=== PATIENT | female | born 1990 | race Caucasian/White ===

== ENCOUNTER → 2019-05-03 18:53 | Outpatient (CLI) | payer OTHER, MEDICAID, SELFPAY ==
--- NOTE | 2019-05-03 | DI.RAD.S_ITS ---
PROCEDURE: XR THORACIC SPINE 2V INDICATIONS: blunt trauma TECHNIQUE: 3 views of the thoracic spine were acquired. COMPARISON: None. FINDINGS: Bones: No fractures or dislocations. No suspicious bony lesions. There is mild degenerative disc disease at T6-T7, T7-T8, T8-T9, T9-T10, and T10-T11. 12 pairs of ribs are noted, and appear intact where visualized. Soft tissues: No paravertebral stripe thickening. IMPRESSION: No fractures. Degenerative disc disease. Dictated by: Justyn Vazquez M.D. on 05/05/2019 at 11:32 Approved by: Justyn Vazquez M.D. on 05/05/2019 at 11:33
--- NOTE | 2019-05-03 | DI.RAD.S_ITS ---
PROCEDURE: XR CERVICAL SPINE 2V OR 3V INDICATIONS: BLUNT TRAUMA TECHNIQUE: 3 view(s) of the cervical spine were acquired. COMPARISON: None. FINDINGS: Bones: No fractures or dislocations to the C7 level. The lateral masses of C1 appear intact on the odontoid view. No suspicious bony lesions. Straightening of the normal lordotic curvature. Multilevel degenerative endplate sclerosis and spurring. Diffuse facet arthropathy. Minimal narrowing of the C4-C5, C5-C6 and C6-C7 disc spaces. Soft tissues: No prevertebral soft tissue swelling. IMPRESSION: Straightening of the normal lordotic curvature. Multilevel cervical spondylosis and facet disease as above No fracture. Dictated by: Fuad Dowling M.D. on 05/04/2019 at 8:54 Approved by: Fuad Dowling M.D. on 05/04/2019 at 8:55
== END ==
PROVIDERS: PCP Family Medicine; Visit Provider Family Medicine
DX: S19.80XA Other specified injuries of unspecified part of neck, initial encounter (principal); M47.812 Spondylosis without myelopathy or radiculopathy, cervical region; M51.34 Other intervertebral disc degeneration, thoracic region
CPT/HCPCS: 72040; 72070

== ENCOUNTER 2019-08-12 14:15 | Emergency (ER) | payer OTHER, MEDICAID, SELFPAY ==
[2019-08-12 14:25] VITALS: BP 134/100; PULSE 70; RESP 15; TEMP 36.6; O2SAT 99; BMI 31.9
[2019-08-12 14:51] LABS: Add Manual Diff / Slide Review NO; Basophils Absolute Auto 0 /uL (0-100); Basophils Percent Auto 0.5 % (0-2); Eosinophils Absolute Auto 500 /uL (0-450); Eosinophils Percent Auto 6.9 % (2-4); Hematocrit 39.9 % (36-46); Hemoglobin 13.6 g/dL (12.0-16.0); Lymphocytes Absolute Auto 2400 /uL (1100-4500); Lymphocytes Percent Auto 33.4 % (25-40); Mean Corpuscular Hemoglobin 29.6 PG (26-34); Mean Corpuscular Volume 87.1 fL (80-100); Monocytes Absolute Auto 900 /uL (0-900); Neutrophils Absolute Auto 3300 /uL (1500-7000); Neutrophils Percent Auto 46.2 % (50-75); Platelet Count 270 X10^3/uL (150-400); Red Blood Cell Count 4.58 X10^6/uL (4.0-5.2); Red Cell Distribution Width 13.8 % (11.6-14.8); White Blood Cell Count 7.2 X10^3/uL (4.5-11.0)
[2019-08-12 14:52] LABS: Prothrombin Time 11.6 SECONDS (10.1-12.7)
[2019-08-12 14:55] LABS: PTT Partial Thromboplastin Tim 35 SECONDS (26.4-36.2)
[2019-08-12 14:57] LABS: Alanine Aminotransferase 27 IU/L (<35); Albumin 4.5 g/dL (3.5-5.0); Albumin Globulin Ratio 1.4 (1.0-2.8); Alkaline Phosphatase 75 U/L (38-126); Aspartate Aminotransferase 44 IU/L (14-36); Bilirubin Total 0.3 mg/dL (0.2-1.3); Blood Urea Nitrogen 6 mg/dL (7-17); Calcium 9.3 mg/dL (8.4-10.2); Carbon Dioxide 29 mmol/L (22-32); Chloride 101 mmol/L (98-107); Estimated Glomerular Filt Rate > 60.0 mL/min (>60); Globulin 3.3 g/dL (1.7-4.1); Glucose 118 mg/dL (70-100); HEMOLYSIS < 15 (0-50); Lipase 39 U/L (23-300); Sodium 138 mmol/L (137-145); Total Protein 7.8 g/dL (6.3-8.2)
[2019-08-12 15:30] VITALS: BP 113/80; PULSE 65; O2SAT 96
--- NOTE | 2019-08-12 15:37 | DI.CT.S_ITS ---
PROCEDURE: CT ABDOMEN PELVIS W CON INDICATIONS: RLQ, rebound tenderness, fever TECHNIQUE: After the administration of intravenous contrast, 5 mm thick sections acquired from the diaphragm to the symphysis. 5 mm coronal and sagittal reformats were acquired. For radiation dose reduction, the following was used: automated exposure control, adjustment of mA and/or kV according to patient size. COMPARISON: [facility], CR, XR CHEST 2V, 08/12/2019, 15:48. FINDINGS: Image quality: Excellent. ABDOMEN: Lung bases: Mild dependent atelectasis at right lung base. Heart size is normal. Solid organs: Liver is normal in size and enhancement. Gallbladder is normal. Biliary system is non dilated. Pancreas enhances normally. Spleen is normal in size and enhancement. No adrenal nodules. Kidneys demonstrate normal size and enhancement, without hydronephrosis. Peritoneum and bowel: Appendix is normal. Bowel loops demonstrate normal wall thickness and caliber. No free fluid or air. Nodes and vessels: No retroperitoneal or mesenteric adenopathy by size criteria. Aorta and inferior vena cava are normal in size. Miscellaneous: No ventral hernias. PELVIS: Genitourinary: Bladder wall thickness is normal. Uterus is normal. There is a 1.1 cm cyst in the right ovary, probably a physiological ovarian follicle. No free fluid in the cul-de-sac or adnexa. Miscellaneous: No inguinal hernias or adenopathy. Bones: No suspicious bony lesions. No vertebral body compression fractures. There is degenerative disc and facet disease in lumbar spine. IMPRESSION: 1. Normal appendix. 2. A 1.1 cm cyst in the right ovary, likely a physiological ovarian follicle. No free fluid in pelvis. Dictated by: Justyn Vazquez M.D. on 08/12/2019 at 16:05 Approved by: Justyn Vazquez M.D. on 08/12/2019 at 16:12
--- NOTE | 2019-08-12 15:37 | DI.RAD.S_ITS ---
PROCEDURE: XR CHEST 2V INDICATIONS: productive cough, fever, abd pain TECHNIQUE: 2 views of the chest were acquired. COMPARISON: None. FINDINGS: Surgical changes and devices: None. Lungs and pleura: Lungs are clear. No pleural effusions or pneumothorax. Mediastinum: Mediastinal contours are normal. Heart size is normal. Bones and chest wall: No suspicious bony abnormalities. Soft tissues appear unremarkable. IMPRESSION: No acute cardiopulmonary disease. Dictated by: Justyn Vazquez M.D. on 08/12/2019 at 16:13 Approved by: Justyn Vazquez M.D. on 08/12/2019 at 16:13
--- NOTE | 2019-08-12 16:21 | ED_ITS ---
HPI - Abdominal Pain <Axel AmatoFlorinCyluz [facility] - Last Filed: 08/12/19 22:35> General Chief Complaint: Abdominal Pain Stated Complaint: lower right abdomen pain Time Seen by Provider: 08/12/19 15:12 Source: patient Mode of arrival: Ambulatory Limitations: no limitations History of Present Illness HPI narrative: This is a 29-year-old female, smoker, who presents to ED with significant other with chief complain of right lower quadrant pain and right flank pain which started yesterday. Patient reports fever and chills for last 2 days with T-max of 100.7?. Patient also had nausea 2 weeks ago which resolved and recurring today. Patient denies vomiting. Patient denies urinary symptoms such as dysuria, hematuria, frequency. Patient reports she also has moist cough, body aches, congestion for 2 days. She had not received flu immunization this season. Last LMP was 08/03/2019 and is not concerned for since her partner had vasectomy. Patient denies unusual vaginal discharge, bleeding or concerns for STIs. Patient has history of ruptured ovarian cyst but thinks he was on the left side which feels different. Patient states also she had history of kidney infection which felt different as well. Patient reports aggravating factors such as driving on bumpy road, coughing, laughing. Patient reports nothing improves her discomfort. Related Data Allergies Allergy/AdvReac Type Severity Reaction Status Date / Time Sulfa (Sulfonamide Allergy Verified 08/12/19 14:33 Antibiotics) Review of Systems <Axel Juanluz [facility] - Last Filed: 08/12/19 22:35> Review of Systems Narrative: General: Reports fever and chills. Denies Fatigue, malaise, sweats. HEENT: Reports nasal congestion. Denies sinus pain, ear pain, sore throat, difficulty swallowing, dizziness. Respiratory: Denies dyspnea, (+) productive cough, wheezing, hemoptysis, sputum. Cardiovascular: Denies chest pain, palpitations, orthopnea, edema. Gastrointestinal: See HPI : Denies dysuria, frequency, incontinence, hematuria, urinary retention. Musculoskeletal: Denies weakness, joint pain or bony pain. Skin: Denies rash, skin lesions, or other. Neurologic: Denies weakness, headache, numbness, change in speech, confusion, seizures, incoordination. Psychiatric: No concerning psychosocial issues. 12-point review of systems is negative except for those stated above. Patient History <Axel Hubbard STAFF SONOGRAPHER - Last Filed: 08/12/19 22:35> Medical History Ruptured ovarian cyst (Acute) Social History Smoking Status: Current every day smoker Smoking Status: Current every day smoker alcohol intake frequency: holidays/special occasions only Substance Use Type: does not use Exam <Axel FitzgeraldBOB Rm - Last Filed: 08/12/19 22:35> Narrative Exam Narrative: GEN: Alert, oriented x 3, well appearing and nourished, and in no acute distress. Head: Normal cephalic, atraumatic. No scalp or temporal tenderness, palpable mass or rash. EYES: Pupils are equal, round, and reactive to light and accommodation. Extraocular muscles are intact bilaterally. There is no subconjunctival hemorrhage, exudate and sclera non-icteric. ENT: Bilateral auditory canals and tympanic membranes clear. Hearing grossly intact. Nose without bleeding, purulent discharge or deviation. Facial sinuses nontender to palpate. Mucous membrane moist, no mucosal lesion. Throat without erythema, tonsillar hypertrophy or exudate. Uvula in midline, airway patent. Neck: Trachea in midline. No JVD, non-tender without lymphadenopathy. No masses or thyroid megaly. Supple, non-tender and no meningeal signs. CARDIAC: Normal regular rate and rhythm without murmurs, gallops, or rubs. No chest wall tenderness. No peripheral edema, cyanosis or pallor. Capillary refill is less than 2 seconds. RESPIRATORY: Lungs are clear to auscultate bilaterally. No cough, wheezes, rales, or rhonchi. No stridor, respiratory distress, increase work of breathing , or accessary muscle used. ABD: Abdomen soft, tender to palpate in right lower quadrant and non-distended. Positive Rovsing. No guarding to palpate. Bowel sounds are normal in all 4 quadrants. There is no palpable masses or organomegaly. EXT: Full painless ROM of all extremities with no loss of sensation, strength, effusion or edema. SKIN: Warm, dry, normal color for patient. No erythema, lesions or rash over visible areas. BACK: Nontender without deformity or crepitance. No flank tenderness. NEUROLOGICAL: Alert and oriented to place, time and person. Sensation and motor function intact bilaterally. No facial droops, dysphasia. PSYCHIATRIC: Good judgement and reason, without hallucinations, abnormal affect or abnormal behaviors during the examination. Patient is not suicidal. Initial Vital Signs Initial Vital Signs: Vital Signs Temperature 97.8 F 08/12/19 14:25 Pulse Rate 70 08/12/19 14:25 Respiratory Rate 15 08/12/19 14:25 Blood Pressure 134/100 H 08/12/19 14:25 Pulse Oximetry 99 08/12/19 14:25 <Burke Omer DO - Last Filed: 08/13/19 08:03> Initial Vital Signs Initial Vital Signs: Vital Signs Temperature 97.8 F 08/12/19 14:25 Pulse Rate 70 08/12/19 14:25 Respiratory Rate 15 08/12/19 14:25 Blood Pressure 134/100 H 08/12/19 14:25 Pulse Oximetry 99 08/12/19 14:25 Scores <BOB Jones - Last Filed: 08/12/19 22:35> GCS [place] coma scale eye opening: Spontaneous [place] coma scale verbal response: Orientated [place] coma scale motor response: Obey commands [place] coma scale total score: 15 Course <MARCUS JonesP - Last Filed: 08/12/19 22:35> Orders Ordered: Discontinued Medications Ketorolac Tromethamine (Toradol) 30 mg IV NOW ONE Stop: 08/12/19 16:22 Last Admin: 08/12/19 16:34 Dose: 30 mg Documented by: KLEVER Ondansetron HCl (Zofran) 4 mg IV NOW ONE Stop: 08/12/19 16:22 Last Admin: 08/12/19 16:35 Dose: Not Given Documented by: KLEVER Vital Signs Vital signs: Vital Signs - 8 hr 08/12/19 14:25 08/12/19 15:30 08/12/19 16:46 Temperature 97.8 F Pulse Rate 70 65 65 Respiratory Rate 15 Blood Pressure 134/100 H Blood Pressure [Right Arm] 113/80 119/83 Pulse Oximetry 99 96 96 08/12/19 17:38 Temperature Pulse Rate 65 Respiratory Rate 14 Blood Pressure Blood Pressure [Right Arm] 118/87 Pulse Oximetry 97 <Burke Omer DO - Last Filed: 08/13/19 08:03> Orders Ordered: Discontinued Medications Ketorolac Tromethamine (Toradol) 30 mg IV NOW ONE Stop: 08/12/19 16:22 Last Admin: 08/12/19 16:34 Dose: 30 mg Documented by: KLEVER Ondansetron HCl (Zofran) 4 mg IV NOW ONE Stop: 08/12/19 16:22 Last Admin: 08/12/19 16:35 Dose: Not Given Documented by: KLEVER Vital Signs Vital signs: Vital Signs - 8 hr 08/12/19 14:25 08/12/19 15:30 08/12/19 16:46 Temperature 97.8 F Pulse Rate 70 65 65 Respiratory Rate 15 Blood Pressure 134/100 H Blood Pressure [Right Arm] 113/80 119/83 Pulse Oximetry 99 96 96 08/12/19 17:38 Temperature Pulse Rate 65 Respiratory Rate 14 Blood Pressure Blood Pressure [Right Arm] 118/87 Pulse Oximetry 97 MDM - Abdominal Pain <BOB Jones - Last Filed: 08/12/19 22:35> Differential Diagnosis Differential diagnosis: Likely acute appendicitis and other (Ovarian cyst, ovarian torsion, Mittleschmerz pain, UTI, pyelonephritis, ectopic ) Medical Records Attestation: I reviewed the patient's medical records. Lab Data Attestation: I reviewed the patient's lab results. Result diagrams: 08/12/19 14:39 08/12/19 14:39 Labs: Lab Results 08/12/19 08/12/19 08/12/19 Range/Units 14:39 14:39 14:39 WBC 7.2 (4.5-11.0) X10^3/uL RBC 4.58 (4.0-5.2) X10^6/uL Hgb 13.6 (12.0-16.0) g/dL Hct 39.9 (36-46) % MCV 87.1 (80-100) fL MCH 29.6 (26-34) PG MCHC 34.0 (30-36) % RDW 13.8 (11.6-14.8) % Plt Count 270 (150-400) X10^3/uL Neut % (Auto) 46.2 L (50-75) % Lymph % (Auto) 33.4 (25-40) % [place] % (Auto) 13.0 (3-14) % Eos % (Auto) 6.9 H (2-4) % Baso % (Auto) 0.5 (0-2) % Neut # (Auto) 3300 (4204-5550) /uL Lymph # (Auto) 2400 (1783-7696) /uL [place] # (Auto) 900 (0-900) /uL Eos # (Auto) 500 H (0-450) /uL Baso # (Auto) 0 (0-100) /uL PT 11.6 (10.1-12.7) SECONDS INR 1.0 (0.9-1.3) APTT 35 (26.4-36.2) SECONDS Sodium 138 (137-145) mmol/L Potassium 4.0 (3.4-5.1) mmol/L Chloride 101 (98-107) mmol/L Carbon Dioxide 29 (22-32) mmol/L BUN 6 L (7-17) mg/dL Creatinine 0.60 (0.52-1.04) mg/dL Estimated GFR > 60.0 (>60) mL/min BUN/Creatinine Ratio 10.0 (6-22) Glucose 118 H (70-100) mg/dL Calcium 9.3 (8.4-10.2) mg/dL Total Bilirubin 0.3 (0.2-1.3) mg/dL AST 44 H (14-36) IU/L ALT 27 (<35) IU/L Alkaline Phosphatase 75 (38-126) U/L Total Protein 7.8 (6.3-8.2) g/dL Albumin 4.5 (3.5-5.0) g/dL Globulin 3.3 (1.7-4.1) g/dL Albumin/Globulin Ratio 1.4 (1.0-2.8) Lipase 39 (23-300) U/L Influenza A (RT-PCR) (NEGATIVE) Influenza B (RT-PCR) (NEGATIVE) 08/12/19 Range/Units 16:40 WBC (4.5-11.0) X10^3/uL RBC (4.0-5.2) X10^6/uL Hgb (12.0-16.0) g/dL Hct (36-46) % MCV (80-100) fL MCH (26-34) PG MCHC (30-36) % RDW (11.6-14.8) % Plt Count (150-400) X10^3/uL Neut % (Auto) (50-75) % Lymph % (Auto) (25-40) % [place] % (Auto) (3-14) % Eos % (Auto) (2-4) % Baso % (Auto) (0-2) % Neut # (Auto) (4035-5475) /uL Lymph # (Auto) (3024-9954) /uL [place] # (Auto) (0-900) /uL Eos # (Auto) (0-450) /uL Baso # (Auto) (0-100) /uL PT (10.1-12.7) SECONDS INR (0.9-1.3) APTT (26.4-36.2) SECONDS Sodium (137-145) mmol/L Potassium (3.4-5.1) mmol/L Chloride (98-107) mmol/L Carbon Dioxide (22-32) mmol/L BUN (7-17) mg/dL Creatinine (0.52-1.04) mg/dL Estimated GFR (>60) mL/min BUN/Creatinine Ratio (6-22) Glucose (70-100) mg/dL Calcium (8.4-10.2) mg/dL Total Bilirubin (0.2-1.3) mg/dL AST (14-36) IU/L ALT (<35) IU/L Alkaline Phosphatase (38-126) U/L Total Protein (6.3-8.2) g/dL Albumin (3.5-5.0) g/dL Globulin (1.7-4.1) g/dL Albumin/Globulin Ratio (1.0-2.8) Lipase (23-300) U/L Influenza A (RT-PCR) Flu a negative (NEGATIVE) Influenza B (RT-PCR) Flu b negative (NEGATIVE) Point of care testing: Point of Care Testing Test Results Negative Urine Dip Bedside Urine Glucose Negative Bedside Urine Bilirubin - Negative Bedside Urine Ketone - Negative Urine Specific [place] 1.015 Bedside Urine Occult Blood - Negative Bedside Urine pH 6.5 Bedside Urine Protein - Negative Bedside Urine Urobilinogen - Negative Bedside Urine Nitrite - Negative Bedside Urine Leukocytes - Negative Esterase Imaging Data Chest x-ray: Radiologist's Impression: [address] [id number] XRay Report Signed Patient: Violeta Laboy KMR#: [id number] : 1990Acct:[id number] Age/Sex: 29 / FDate of Service: 08/12/19 Loc: ED Accession Number: [id number] Procedure: XR chest 2V Ordering Provider: Axel HubbardP PROCEDURE: XR CHEST 2V INDICATIONS: productive cough, fever, abd pain TECHNIQUE: 2 views of the chest were acquired. COMPARISON: None. FINDINGS: Surgical changes and devices: None. Lungs and pleura: Lungs are clear. No pleural effusions or pneumothorax. Mediastinum: Mediastinal contours are normal. Heart size is normal. Bones and chest wall: No suspicious bony abnormalities. Soft tissues appear unremarkable. IMPRESSION: No acute cardiopulmonary disease. Dictated by: Justyn Vazquez M.D. on 08/12/2019 at 16:13 Approved by: Justyn Vazquez M.D. on 08/12/2019 at 16:13 CT scan - abdomen/pelvis: Radiologist's Impression: [address] [address] [address] Scan Report Signed Patient: Violeta Laboy KMR#: [id number] : 1990Acct:[id number] Age/Sex: 29 / FDate of Service: 08/12/19 Loc: ED Accession Number: [id number] Procedure: CT abdomen pelvis w con Ordering Provider: Axel Hubbard [facility] PROCEDURE: CT ABDOMEN PELVIS W CON INDICATIONS: RLQ, rebound tenderness, fever TECHNIQUE: After the administration of intravenous contrast, 5 mm thick sections acquired from the diaphragm to the symphysis. 5 mm coronal and sagittal reformats were acquired. For radiation dose reduction, the following was used: automated exposure control, adjustment of mA and/or kV according to patient size. COMPARISON: [facility], XR CHEST 2V, 08/12/2019, 15:48. FINDINGS: Image quality: Excellent. ABDOMEN: Lung bases: Mild dependent atelectasis at right lung base. Heart size is normal. Solid organs: Liver is normal in size and enhancement. Gallbladder is normal. Biliary system is non dilated. Pancreas enhances normally. Spleen is normal in size and enhancement. No adrenal nodules. Kidneys demonstrate normal size and enhancement, without hydronephrosis. Peritoneum and bowel: Appendix is normal. Bowel loops demonstrate normal wall thickness and caliber. No free fluid or air. Nodes and vessels: No retroperitoneal or mesenteric adenopathy by size cri teria. Aorta and inferior vena cava are normal in size. Miscellaneous: No ventral hernias. PELVIS: Genitourinary: Bladder wall thickness is normal. Uterus is normal. There is a 1.1 cm cyst in the right ovary, probably a physiological ovarian follicle. No free fluid in the cul-de-sac or adnexa. Miscellaneous: No inguinal hernias or adenopathy. Bones: No suspicious bony lesions. No vertebral body compression fractures. There is degenerative disc and facet disease in lumbar spine. IMPRESSION: 1. Normal appendix. 2. A 1.1 cm cyst in the right ovary, likely a physiological ovarian follicle. No free fluid in pelvis. Dictated by: Justyn Vazquez M.D. on 08/12/2019 at 16:05 Approved by: Justyn Vazquez M.D. on 08/12/2019 at 16:12 [facility] Narrative Medical decision making narrative: This is a 29-year-old female who presents to ED with right lower quadrant, nausea, fever, congestion, productive cough for last 2 days. Abdominal physical exam exhibited for concerns for acute appendicitis secondary to rebound tenderness to right lower quadrant and Rovsing sign. Considered for UTI, kidney infection, a topic but POC UA was negative for infection, blood and tests was negative as well. Blood tests today were unremarkable except mildly elevated AST. CT of abdomen/pelvis was negative for appendicitis. However, there is a at 1.1 cm follicular cyst in the right ovary without free fluid in pelvic region. Patient's last menstrual period was about 10 days ago. The patient's right lower quadrant is likely due to ovulation pain without rupture. Unlikely this size of ovarian cyst would likely to cause a torsion. Patient denies STI concerns, unusual vaginal discharge. Given patient had fever, congestion, aches, productive cough, Flu swab was obtained and negative result. CXR was negative for acute findings. Patient declined Zofran. Patient was medicated with Toradol injection which help discomfort somewhat. Findings were discussed with the patient and patient advised to take [id number] Tylenol and or Motrin as needed for discomfort. Follow up with her primary care physician next couple of days and return to ED with return precautions and if pain lasting longer than expected. Patient verbalized understanding and agrees with the treatment plan. <Bukre Omer, DO - Last Filed: 08/13/19 08:03> Lab Data Labs: Lab Results 08/12/19 08/12/19 08/12/19 Range/Units 14:39 14:39 14:39 WBC 7.2 (4.5-11.0) X10^3/uL RBC 4.58 (4.0-5.2) X10^6/uL Hgb 13.6 (12.0-16.0) g/dL Hct 39.9 (36-46) % MCV 87.1 (80-100) fL MCH 29.6 (26-34) PG MCHC 34.0 (30-36) % RDW 13.8 (11.6-14.8) % Plt Count 270 (150-400) X10^3/uL Neut % (Auto) 46.2 L (50-75) % Lymph % (Auto) 33.4 (25-40) % [place] % (Auto) 13.0 (3-14) % Eos % (Auto) 6.9 H (2-4) % Baso % (Auto) 0.5 (0-2) % Neut # (Auto) 3300 (1454-8275) /uL Lymph # (Auto) 2400 (0785-1210) /uL [place] # (Auto) 900 (0-900) /uL Eos # (Auto) 500 H (0-450) /uL Baso # (Auto) 0 (0-100) /uL PT 11.6 (10.1-12.7) SECONDS INR 1.0 (0.9-1.3) APTT 35 (26.4-36.2) SECONDS Sodium 138 (137-145) mmol/L Potassium 4.0 (3.4-5.1) mmol/L Chloride 101 (98-107) mmol/L Carbon Dioxide 29 (22-32) mmol/L BUN 6 L (7-17) mg/dL Creatinine 0.60 (0.52-1.04) mg/dL Estimated GFR > 60.0 (>60) mL/min BUN/Creatinine Ratio 10.0 (6-22) Glucose 118 H (70-100) mg/dL Calcium 9.3 (8.4-10.2) mg/dL Total Bilirubin 0.3 (0.2-1.3) mg/dL AST 44 H (14-36) IU/L ALT 27 (<35) IU/L Alkaline Phosphatase 75 (38-126) U/L Total Protein 7.8 (6.3-8.2) g/dL Albumin 4.5 (3.5-5.0) g/dL Globulin 3.3 (1.7-4.1) g/dL Albumin/Globulin Ratio 1.4 (1.0-2.8) Lipase 39 (23-300) U/L Influenza A (RT-PCR) (NEGATIVE) Influenza B (RT-PCR) (NEGATIVE) 08/12/19 Range/Units 16:40 WBC (4.5-11.0) X10^3/uL RBC (4.0-5.2) X10^6/uL Hgb (12.0-16.0) g/dL Hct (36-46) % MCV (80-100) fL MCH (26-34) PG MCHC (30-36) % RDW (11.6-14.8) % Plt Count (150-400) X10^3/uL Neut % (Auto) (50-75) % Lymph % (Auto) (25-40) % [place] % (Auto) (3-14) % Eos % (Auto) (2-4) % Baso % (Auto) (0-2) % Neut # (Auto) (1786-7568) /uL Lymph # (Auto) (8058-4315) /uL [place] # (Auto) (0-900) /uL Eos # (Auto) (0-450) /uL Baso # (Auto) (0-100) /uL PT (10.1-12.7) SECONDS INR (0.9-1.3) APTT (26.4-36.2) SECONDS Sodium (137-145) mmol/L Potassium (3.4-5.1) mmol/L Chloride (98-107) mmol/L Carbon Dioxide (22-32) mmol/L BUN (7-17) mg/dL Creatinine (0.52-1.04) mg/dL Estimated GFR (>60) mL/min BUN/Creatinine Ratio (6-22) Glucose (70-100) mg/dL Calcium (8.4-10.2) mg/dL Total Bilirubin (0.2-1.3) mg/dL AST (14-36) IU/L ALT (<35) IU/L Alkaline Phosphatase (38-126) U/L Total Protein (6.3-8.2) g/dL Albumin (3.5-5.0) g/dL Globulin (1.7-4.1) g/dL Albumin/Globulin Ratio (1.0-2.8) Lipase (23-300) U/L Influenza A (RT-PCR) Flu a negative (NEGATIVE) Influenza B (RT-PCR) Flu b negative (NEGATIVE) Point of care testing: Point of Care Testing Test Results Negative Urine Dip Bedside Urine Glucose Negative Bedside Urine Bilirubin - Negative Bedside Urine Ketone - Negative Urine Specific [place] 1.015 Bedside Urine Occult Blood - Negative Bedside Urine pH 6.5 Bedside Urine Protein - Negative Bedside Urine Urobilinogen - Negative Bedside Urine Nitrite - Negative Bedside Urine Leukocytes - Negative Esterase Discharge Plan Departure Patient Disposition: Home Clinical Impression: Acute upper respiratory infection, Cyst of right ovary Abdominal pain Qualifiers: Abdominal location: right lower quadrant Qualified Code(s): R10.31 - Right lower quadrant pain Discharge Date/Time: 08/12/19 18:14 Activity Restrictions/Additional Instructions: You have been diagnosed with [right lower quadrant pain and upper respiratory infection. Urine test indicates no infection and negative for . Flu was negative. Acute findings such as pneumonia. CT of abdomen and pelvis shows no acute findings such as appendicitis but shows 1.1 cm cyst in the right ovary without fluid in the pelvis. Blood tests were unremarkable without elevation of WBC. Mild elevation in AST as 44 which is 1 of the liver function test.]. What to do: *Take your medications as directed. Please take Tylenol up to 4000 mg in 24 hour. Ibuprofen/Motrin 600-800 mg 3 times a day with food for discomfort and fever. *Follow up with your primary care provider in 2-3 days, call for an appointment. Let them know you were seen in the ED and that we asked you to be seen in follow up. *Return to ED if you have any new, worsening, or concerning symptoms, such as [fever, increasing pain, chest pain, breathing difficulty, unable to tolerate fluids, pain lasting longer than expected or any acute concerns. Your doctor may want to recheck AST in the future to follow-up.]. Referrals: Avila Swift MD [Primary Care Provider] -
[2019-08-12] MEDS: KETOROLAC 60 MG/2 ML VIAL 30 MG IV (16:34)
[2019-08-12 16:46] VITALS: BP 119/83; PULSE 65; O2SAT 96
[2019-08-12 17:19] LABS: Influenza A - CEPHEID Flu A NEGATIVE (NEGATIVE); Influenza B - CEPHEID Flu B NEGATIVE (NEGATIVE)
[2019-08-12 17:38] VITALS: BP 118/87; PULSE 65; RESP 14; O2SAT 97
== END 2019-08-12 18:14 | disposition home or self-care (01) ==
PROVIDERS: Emergency Medicine; Emergency Provider Nurse Practitioner Family; PCP Family Medicine
DX: J06.9 Acute upper respiratory infection, unspecified (principal); N83.201 Unspecified ovarian cyst, right side; R10.31 Right lower quadrant pain
CPT/HCPCS: 36415; 71046; 74177; 80053; 81003; 81025; 83690; 85025; 85610; 85730; 87502; 96374; 99284; J1885; Q9967

== ENCOUNTER 2020-08-22 10:17 | Day surgery (SDC) | payer OTHER, MEDICAID, SELFPAY ==
[2020-08-22] VITALS (15 sets, daily range): BP systolic 96–142; BP diastolic 48–88; PULSE 60–96; RESP 12–18; TEMP 36.2–36.8; O2SAT 88–100; BMI 35.7
--- NOTE | 2020-08-22 | PATH_ITS ---
[facility] Accession Number: [id number] . 01 Material submitted: . PART A: gallbladder - GALLBLADDER PART B: liver - LIVER BIOPSIES RIGHT LOBE . 01 Clinical history: . LAP MARK W/LIVER BX B. RULE OUT PRIMARY BILIARY CIRRHOSIS . 02 Diagnosis: A. Gallbladder, Cholecystectomy: Cholelithiasis with mild chronic cholecystitis. No evidence of neoplasm. . B. Liver, Right Lobe, Needle Core Biopsies: Liver with patchy moderate portal inflammation and rare nonnecrotizing granulomas; please see comment. No significant fibrosis on trichrome stain. MRV 08/30/2020 1627 Local . 02 Comment: Sections are of liver parenchyma with patchy moderate portal inflammation consisting predominantly of lymphocytes and scatterd eosinophils. Plasma cells are present, but are not over-represented. Bile ducts are seen in 17 of 20 intact portal tracts. A few nonnecrotizing granulomas are seen within lobules, one adjacent to a portal tract. There is minimal (approximately 5%) steatosis, predominantly macrovessicular. Scattered neutrophils and eosinophils are present within the lobular parenchyma. No ballooned hepatocytes are identified. There is no significant fibrosis seen on a trichrome stain. A PAS stain with diastase is negative for the intrahepatocytic globules of alpha-1 antitrypsin deficiency. There is no significant iron deposition seen on iron stain. . The positive KRISTINE and AMA serologies are noted. The overall histologic findings are compatible with primary biliary cirrhosis/cholangitis, stage 1, if other etiologies (such as infection, including viral hepatitis, or drug-induced injury) are excluded. . As part of routine quality checker, Dr. Turner has reviewed this case and agrees with the interpretation above. . 02 Electronically signed: . Cody Lazaro MD, PhD, Pathologist NPI- [id number] . 01 Gross description: . A. The specimen is received in formalin, labeled gallbladder and consists of a 7.0 x 4.0 x 3.5 cm intact gallbladder with a 0.2 cm in diameter cystic duct. The serosa is fitch-green and smooth. Opening reveals green viscous bile with a 3.0 x 2.0 x 2.0 cm fitch-green granular cholelith lodged within the neck of the specimen. The mucosa is fitch-green and velvety to trabeculated. The wall thickness measures 0.1 cm. User Experience Designer sections are submitted to include the en face cystic duct margin in cassette A1. B. The specimen is received in formalin, labeled liver right lobe and consists of multiple fitch-brown cores of soft tissue ranging from 0.1 to 1.5 cm in length by 0.2 cm in diameter. The specimen is entirely submitted in cassette B1. (EA:[id number]) /MRV 08/24/2020 1234 Local . 02 Pathologist provided ICD-10: K80.60, K73.9 . 02 CPT . 788516, 039215, 306656, 937508, 706148 Performed at: 01 [facility] [address] [place] [address], [place], [place] [id number] MD Thaddeus Wilder MD Phone: [phone] Performed at: 02 [facility] [place] [address] [place] [id number] MD Merari Dial MD Phone: [phone]
[2020-08-22] MEDS: LACTATED RINGERS 1,000 ML 42 ML IV ×2 (10:50→14:54)
--- NOTE | 2020-08-22 13:11 | PM.PREOP ---
Pre-operative Note COVID-19 COVID-19 status: Negative Result date/Date tested (Pos, Neg/Pending): 08/20/20 Interval Note History & Physical reviewed/Exam performed by Physician: Yes Changes to H&P: No H&P completed within 30 days and has changed as indicated here:: No changes
[2020-08-22] MEDS: ACETAMINOPHEN 325 MG TABLET 975 MG PO (13:22)
[2020-08-22] MEDS: PIPERACILLIN-TAZO 3.375 GM/50 ML FROZ.PIGGY IV (13:35)
--- NOTE | 2020-08-22 14:01 | SUR.OPER ---
Supine on padded OR bed, head on pillow, arms secured on padded arm boards at <90 degrees abduction, legs uncrossed, safety belt at thigh, tape over blanket over lower legs.
[2020-08-22] MEDS: BUPIVACAINE 0.25% W/ EPI (PF) 10 ML VIAL 30 ML INJ ×2 (14:22→15:32)
[2020-08-22] MEDS: LORazepam 2 MG/ML INJ 0.25 MG IV ×2 (15:57→16:09)
--- NOTE | 2020-08-22 16:04 | P.OP_ITS ---
Operative Date/Time/Diagnoses Date of procedure: 08/22/20 Time of procedure: 16:04 Pre-op diagnosis: Symptomatic cholelithiasis, possible primary biliary cirrhosis Post-op diagnosis: other (Symptomatic cholelithiasis, chronic cholecystitis, possible biliary cirrhosis) Procedure & Clinicians Procedure: Laparoscopic cholecystectomy, 27418-60 Rahul cut liver biopsy x 3, 76305 Same procedure as scheduled: Yes Indications: This is a 30 yo woman who is undergoing evaluation for autoimmune disease, and primary biliary cirrhosis is suspected. She has been having biliary colic symptoms, and gall stones were found on US imaging and considered the likely source of her pain. Due to the suspected primary biliary cirrhosis her nuclear supervising operator has requested a biopsy of the liver to be done at the time of her lap maddi. Surgeon: Cyndy Vela Click Yes if Unassisted: Yes Anesthesia Type: General Operative Notes Findings: Rounded liver, slighly fatty appearance, soft, no appearance of significant cirrhosis Thickened, deeply intrahepatic gall bladder Good critical view Adhesions of stomach and omentum to gall bladder Specimen(s): other (Gall bladder and contents, rahul cut liver biopsy x 3 cores) Estimated Blood Loss (mL): 50 Blood products transfused: none Procedure in detail: The patient was brought into the operating room and placed supine on the OR table. Sequential compression devices were placed on both legs and turned on. Appropriate perioperative antibiotics were given prior to the start of surgery. General anesthesia was induced the patient was intubated. The abdomen was prepped and draped in sterile fashion. Surgical time-out was conducted. Local anesthetic was injected under the skin just superior to the umbilicus and a 5 mm vertical incision was made at this site. The umbilical stalk was grasped with a Rocky and elevated. A Veress needle was passed through the fascia into proper position. The position was tested with a saline drop test which was appropriate for intra-abdominal Veress needle placement. The abdomen was then insufflated in the usual fashion. Once insufflated to 15 mm Hg the Veress needle was removed and a 5 mm optical trocar was placed under direct vision using a 5 mm 30 degree scope. Once the camera was inside the abdomen I took a look around. There was no injury from port placement. Two additional ports were placed in a similar fashion in the right upper quadrant and a 10 mm port was placed in the epigastrium. Densely adherent omentum was attached to the gall bladder surface. These adhesions were taken down using hook cautery. Through the two lateral ports the gallbladder was grasped and elevated. The gall bladder was deeply intrahepatic and the infundibulum was adhesed down on top of the cystic duct. Careful dissection was undertaken to free the infundibulum from its adhesions. Once these adhesions were freed, the infundibulum was retracted laterally to the patient's right. This exposed the gallbladder hilum and allowed for dissection of the cystic duct and cystic artery. There were more adhesions and thickened inflammatory tissue throughout the gallbladder hilum. This required tedious careful dissection to avoid injury to the bile ducts. Once the cystic duct and artery were completely dissected out I was able to see liver behind and between both structures without any other structures in the way, giving us the critical view of safety. At this point I triply clipped both structures on the patient's side and put a single clip on the gallbladder side of both the cystic duct and artery. Both structures were then divided with laparoscopic Langston. Following this the gallbladder was gradually dissected free from the liver. Because of its anatomical position deep within the liver, this dissection required prolonged operative time, double that normally required for this part of the operation. Due to the deeply intrahepatic gall bladder and patient body habitus, modifier 22 will be added to the coding for this case owing to significantly increased operative time required, increased level of risk and skill required due to patient disease and anatomy, requiring twice the normal operative time for the same type of case. There was quite a bit of hypervascularity of the scar tissue between the gallbladder and the liver. Numerous feeding vessels from the liver surface had to be controlled with cautery. Once the gallbladder was entirely freed, it was placed inside an Endo-Catch bag and removed through the epigastric port site. I did have to enlarge the fascial opening at the epigastric port site in order to get the gallbladder out. Once it was out and passed off to the back table I then took another look inside the abdomen. I suctioned clean any remaining blood or fluid on the lateral side of the liver and in the subhepatic space. I then turned my attention to performing the liver biopsy. A Rahul-cut biopsy needle was brought into the field. Local anesthetic was infiltrated in the proper position within the abdominal wall. An 11 blade was used to make a knick in the skin at this site. The Rahul-cut needle was then passed through the abdominal wall into the abdominal cavity and several passes were taken at the anterior liver edge, resulting in three full core biopsy specimens. These were placed in formalin and passed off the table, labeled to rule out primary biliary cirrhosis. There was significant bleeding from the liver surface at the biopsy sites. These sites were cauterized with L hook, and Surgicell was used to cover each site. Good hemostasis was achieved. The gall bladder fossa was rechecked and there was a small amount of bleeding from the vascularlized scar tissue within the fossa. I treated it with Surgicell. This area was very near hilar structures and not safe to cauterize. Good hemostasis was achieved. There was no active bleeding or leaking of bile at this point, seen from the gallbladder fossa or from the clipped stumps of the cystic duct and artery. At this point the fascia was closed with 0 Vicryl using Eleazar Marilu suture passer. Insufflation was then removed from the abdomen and the epigastric port site was closed with 3-0 Vicryl in the subcutaneous layers, and 4-0 Monocryl in the skin. The remaining port sites were closed with 4-0 Monocryl in the skin. Each port site was sealed with Dermabond. Local anesthetic was given at each of the port sites and in the fascia. This concluded the procedure. At this point the needle sponge and instrument counts were correct. The gallbladder was passed off the table for pathology. Patient was awakened from anesthesia and extubated. She was transferred to the postanesthesia care unit in stable condition. Complications: none Post-operative Condition: stable Disposition: PACU
[2020-08-22 16:07] LABS: Hematocrit 36.9 % (36-46); Hemoglobin 12.1 g/dL (12.0-16.0); Mean Corpuscular HGB Conc 32.9 % (30-36); Mean Corpuscular Hemoglobin 28.9 PG (26-34); Mean Corpuscular Volume 87.9 fL (80-100); Platelet Count 260 X10^3/uL (150-400); Red Blood Cell Count 4.19 X10^6/uL (4.0-5.2); Red Cell Distribution Width 13.1 % (11.6-14.8); White Blood Cell Count 13.1 X10^3/uL (4.5-11.0)
[2020-08-22] MEDS: OXYCODONE IR 5 MG TABLET PO (16:14)
[2020-08-22] MEDS: hydrOXYzine pamoate 25 MG CAPSULE PO (16:15)
[2020-08-22] MEDS: HYDROMORPHONE 1 MG INJ 0.5 MG IV (17:21)
[2020-08-22] MEDS: SODIUM CHLORIDE 0.9% 1,000 ML 100 ML IV (17:22)
[2020-08-22] MEDS: ACETAMINOPHEN 325 MG TABLET 650 MG PO ×2 (17:22→23:26)
--- NOTE | 2020-08-22 18:18 | PC.NURSE ---
Addendum entered by Gracie Singh R.N. 08/22/20 22:23: Pt reports pain continues. Offered pt ativan for anxiety and to assist with pain management. Pt declines stating no anxiety, only pain. Repositioning encouraged, ice encouraged. Discussed with pt plan to transition to oral pain medications in preparation for discharge tomorrow as pt states desires to go home tomorrow. With next dose of pain meds available @ 2300, plan to administer 10 mg oxycodone and pt expresses agreement with this plan. Addendum entered by Gracie Singh R.N. 08/22/20 19:46: I.S. teaching completed and pt able to perform to nearly 1500. Up to bathroom with minimal assistance to void. Denies dizziness or lightheadedness. Nicotine patch placed RUE as per pt request. Pt taught to splint abdomen with movement. Addendum entered by Gracie Singh R.N. 08/22/20 18:33: Addendum: Although emar states order for 1 mg dilauid iv for pain 02/09, this editorial writer's discretion not to administer this dose as pt has received multiple medications to treat pain previously in surgery and in PACU. Will proceed slowly and monitor for relief with narcotic pain medications. Addendum entered by Gracie Singh R.N. 08/22/20 18:32: Pt currently resting quietly in bed on left side without signs of distress or discomfort. Original Note: Pt to room 220 from PACU awake and alert. Pt's S.O.Chucho, meets pt in room. S.O. has filled pt's discharge prescriptions and this editorial writer instructed S.O and pt pt is not to take any of these meds and they should be taken home with S.O. S.O. reports will take pt's discharge meds and pt's purse back to [facility]. Pt c/o pain to abdomen 7/10 and is tearful. Asks if can go outside to smoke and informed pt this is a no smoking campus. Dr. Vela made aware of pt's request and nicotine patch ordered as per pt request. Pt denies nausea, although bowel tones are quiet. Provided with clear and full liquids and pt takes these well. Pt is able to move self independently in bed. Pillow provided for abdominal splinting and ice is present to multiple surgical lap sites to abdomen. Pt requests pain meds and this editorial writer presented oxycodone to pt who declines stating prefers something immediate acting in the iv. Pt is tearful. Administered 0.5 mg iv dilaudid with immediate relief in pain from 7 to 10. Pt calmer. Continuous oximeter in place. Room air 96%.
[2020-08-22] MEDS: NICOTINE 21 MG PATCH TOP (19:16)
[2020-08-22] MEDS: HYDROMORPHONE 1 MG INJ IV ×2 (20:10→23:26)
[2020-08-22] MEDS: FAMOTIDINE 20 MG/50 ML PIGGYBACK 200 MG IV (20:24)
[2020-08-22] MEDS: SENNOSIDES 8.6 MG TABLET 17.2 MG PO (20:24)
[2020-08-22] MEDS: OXYCODONE IR 5 MG TABLET 10 MG PO (22:45)
[2020-08-23 00:16] VITALS: BP 130/75; PULSE 83; RESP 16; TEMP 36.4; O2SAT 94
--- NOTE | 2020-08-23 00:31 | PC.NURSE ---
Addendum entered by Betzy Langford R.N. 08/23/20 05:14: Crying; states she is in so much pain. Too early to give additional Oxycodone so medicated with IV Dilaudid. Addendum entered by Betzy Langford R.N. 08/23/20 02:27: Up to bathroom. States pain is currently only 5/10 so medicated with Oxycodone. Original Note: 2335 patient seen and assessed. Is alert and oriented. Breath sounds CTA with RA sat of 94%; on continuous oximetry. HRR. Denies nausea. BT present but denies flatus; abdomen is soft but tender at incisional sites. Is able to move self in bed. Up to bathroom with SBA. Denies dysuria but states she is having frequency/ urgency related to IVF. Lap sites dermabonded with bruising but no redness or drainage noted. Complains of 8/10 sharp intermittent pain in abdomen and back and was medicated with IV Dilaudid with pain decreasing to 5/10; ice pack also applied but declines abdominal binder at this time. Did discuss use of incentive spirometer and CDB with splinting of incision; verbalizes understanding. Fall risk score is moderate but patient agrees to call for assistance so bed alarm is not being used; patient appears steady on feet.
[2020-08-23] MEDS: SODIUM CHLORIDE 0.9% 1,000 ML 100 ML IV (02:25)
[2020-08-23] MEDS: OXYCODONE IR 5 MG TABLET PO ×2 (02:25→06:33)
[2020-08-23 03:23] VITALS: BP 115/75; PULSE 63; RESP 16; TEMP 36.3; O2SAT 97
[2020-08-23] MEDS: HYDROMORPHONE 1 MG INJ IV (05:12)
[2020-08-23] MEDS: ACETAMINOPHEN 325 MG TABLET 650 MG PO (05:44)
[2020-08-23 05:50] LABS: Add Manual Diff / Slide Review NO; Basophils Absolute Auto 100 /uL (0-100); Basophils Percent Auto 0.6 % (0-2); Eosinophils Absolute Auto 0 /uL (0-450); Eosinophils Percent Auto 0.1 % (2-4); Hematocrit 36.4 % (36-46); Hemoglobin 11.8 g/dL (12.0-16.0); Lymphocytes Absolute Auto 1300 /uL (1100-4500); Lymphocytes Percent Auto 11.3 % (25-40); Mean Corpuscular HGB Conc 32.3 % (30-36); Mean Corpuscular Hemoglobin 28.2 PG (26-34); Mean Corpuscular Volume 87.5 fL (80-100); Monocytes Absolute Auto 1100 /uL (0-900); Monocytes Percent Auto 9.4 % (3-14); Neutrophils Absolute Auto 9100 /uL (1500-7000); Neutrophils Percent Auto 78.6 % (50-75); Platelet Count 232 X10^3/uL (150-400); Red Blood Cell Count 4.16 X10^6/uL (4.0-5.2); Red Cell Distribution Width 13.4 % (11.6-14.8); White Blood Cell Count 11.6 X10^3/uL (4.5-11.0)
[2020-08-23 07:07] VITALS: BP 124/68; PULSE 74; RESP 16; TEMP 36.6; O2SAT 95
[2020-08-23 07:16] VITALS: PULSE 80; RESP 16; O2SAT 97
--- NOTE | 2020-08-23 09:12 | CM.IDA ---
Initial DCP Assessment Note Pt is a 30 yo female, resident of [facility], now POD#1 from lap Vi and liver biopsy w/ Dr Vela PCP: Avila Swift Payer: Elver/USHA Reviewed chart, patient lives w/ S.O. on [place], currently employed and indp at baseline. According to chart review, pain management has been an issue since arriving to the acute care floor, persistent even after administration of IV narcotic. DC home w/ S.O. and close outpatient f/u is expected today, No needs expected from DC planning team although will remain available in case this changes today. GOMEZ Medellin
--- NOTE | 2020-08-23 09:28 | PC.NURSE ---
Discharge: Pt feels ready to d/c home. Dr. Vela in to see pt. She gave pt d/c instructions. Pt has been able to tolerate diet. No n/v. Vds w/out diff. Reports po pain meds are effective. Has been amb w/out diff. Wound care instructions given by . Priority load pass given. Reviewed discharge packet. Spouse has already picked up her rx at the pharmacy. Questions answered. Pt d/c home via auto w/spouse.
== END 2020-08-23 09:15 | disposition home or self-care (01) ==
LOC: OR 13:18 → AC 16:58
PROVIDERS: PCP Family Medicine; Referring Provider Surgery; Visit Provider Surgery
PROC: 0FT44ZZ Resection of Gallbladder, Percutaneous Endoscopic Approach (ICD-10-PCS; CPT 47562; principal; 2020-08-22 12:00)
DX: K80.10 Calculus of gallbladder with chronic cholecystitis without obstruction (principal); K82.8 Other specified diseases of gallbladder; E66.9 Obesity, unspecified; K75.9 Inflammatory liver disease, unspecified
CPT/HCPCS: 47562 ×2; 47001; 36415; 85025; 85027; 94762; J0330; J1100; J1170; J2060; J2250; J2405; J2543; J2704; J3010

== ENCOUNTER → 2020-09-06 09:00 | Outpatient (CLI) | payer OTHER, MEDICAID, SELFPAY ==
[2020-08-22 17:29] VITALS: BMI 35.7
--- NOTE | 2020-09-06 09:01 | DI.NM.S_ITS ---
PROCEDURE: NM HIDA NO EJECTION FRACTION RADIOPHARMACEUTICAL: 4.5 mCi Tc-99m mebrofenin IV. INDICATIONS: Colicky RUQ pain s/p lap maddi TECHNIQUE: Following intravenous administration of Tc-99m mebrofenin, sequential anterior abdominal images were obtained through at least 60 minutes. COMPARISON: None. FINDINGS: There is normal tracer uptake and excretion by the liver. There is normal visualization of intrahepatic ducts and common bile duct. Gallbladder has been removed. No tracer pool in the gallbladder fossa. There is normal tracer excretion into duodenum. IMPRESSION: Expected uptake in the biliary system and bowel. No tracer pooling in the gallbladder fossa. Dictated by: Beth Laboy M.D. on 09/06/2020 at 11:23 Approved by: Beth Laboy M.D. on 09/06/2020 at 11:30
== END ==
PROVIDERS: PCP Family Medicine; Referring Provider Family Medicine; Visit Provider Surgery
DX: R10.11 Right upper quadrant pain (principal); Z90.49 Acquired absence of other specified parts of digestive tract
CPT/HCPCS: 78226; A9537

== ENCOUNTER → 2020-12-26 08:25 | Outpatient (CLI) | payer OTHER, MEDICAID, SELFPAY ==
[2020-08-22 17:29] VITALS: BMI 35.7
[2020-12-26 19:43] LABS: Add Manual Diff / Slide Review NO; Basophils Absolute Auto 0 /uL (0-100); Basophils Percent Auto 0.6 % (0-2); Eosinophils Absolute Auto 400 /uL (0-450); Eosinophils Percent Auto 6.1 % (2-4); Hematocrit 42.2 % (36-46); Hemoglobin 13.7 g/dL (12.0-16.0); Lymphocytes Absolute Auto 1800 /uL (1100-4500); Lymphocytes Percent Auto 27.4 % (25-40); Mean Corpuscular HGB Conc 32.5 % (30-36); Mean Corpuscular Hemoglobin 28.7 PG (26-34); Mean Corpuscular Volume 88.2 fL (80-100); Monocytes Absolute Auto 700 /uL (0-900); Monocytes Percent Auto 11.2 % (3-14); Neutrophils Absolute Auto 3500 /uL (1500-7000); Neutrophils Percent Auto 54.7 % (50-75); Platelet Count 241 X10^3/uL (150-400); Red Blood Cell Count 4.78 X10^6/uL (4.0-5.2); Red Cell Distribution Width 13.6 % (11.6-14.8); White Blood Cell Count 6.4 X10^3/uL (4.5-11.0)
[2020-12-26 20:06] LABS: Alanine Aminotransferase 22 IU/L (<35); Albumin 4.3 g/dL (3.5-5.0); Albumin Globulin Ratio 1.3 (1.0-2.8); Alkaline Phosphatase 68 U/L (38-126); Aspartate Aminotransferase 30 IU/L (14-36); BUN Creatinine Ratio 17.2 (6-22); Bilirubin Total 0.3 mg/dL (0.2-1.3); Blood Urea Nitrogen 11 mg/dL (7-17); Carbon Dioxide 26 mmol/L (22-32); Chloride 103 mmol/L (98-107); Estimated Glomerular Filt Rate > 60.0 mL/min (>60); Globulin 3.2 g/dL (1.7-4.1); Glucose 107 mg/dL (70-100); HEMOLYSIS 28 (0-50); Potassium 4.4 mmol/L (3.4-5.1); Sodium 136 mmol/L (137-145); Total Protein 7.5 g/dL (6.3-8.2)
[2020-12-29 13:13] LABS: H. Pylori Antigen Stool Negative (Negative)
== END ==
PROVIDERS: PCP Family Medicine; Visit Provider Family Medicine
DX: R10.11 Right upper quadrant pain (principal)
CPT/HCPCS: 80053; 85025; 87338

== ENCOUNTER → 2021-04-01 08:44 | Outpatient (CLI) | payer OTHER, MEDICAID, SELFPAY ==
[2020-08-22 17:29] VITALS: BMI 35.7
[2021-04-01 22:01] LABS: COVID19 - ORCAS (NP or Nasal) Negative (Negative)
== END ==
PROVIDERS: PCP Family Medicine; Visit Provider Physician Assistant
DX: Z20.822 Contact with and (suspected) exposure to COVID-19 (principal)
CPT/HCPCS: C9803; U0003

== ENCOUNTER → 2023-05-14 09:47 | Outpatient (CLI) | payer OTHER, MEDICAID, SELFPAY ==
[2020-08-22 17:29] VITALS: BMI 35.7
== END ==
PROVIDERS: PCP Physician Assistant Medical; Visit Provider Physician Assistant Medical
DX: S90.552A Superficial foreign body, left ankle, initial encounter (principal)
CPT/HCPCS: 87070; 87075; 87077; 87205

== ENCOUNTER → 2023-07-16 08:24 | Outpatient (CLI) | payer OTHER, MEDICAID, SELFPAY ==
[2020-08-22 17:29] VITALS: BMI 35.7
[2023-07-16 21:18] LABS: Add Manual Diff / Slide Review NO; Basophils Absolute Auto 0 /uL (0-100); Basophils Percent Auto 0.2 % (0-2); Eosinophils Absolute Auto 200 /uL (0-450); Eosinophils Percent Auto 2.7 % (2-4); Lymphocytes Absolute Auto 800 /uL (1100-4500); Lymphocytes Percent Auto 9.9 % (25-40); Mean Corpuscular HGB Conc 33.4 % (30-36); Mean Corpuscular Hemoglobin 29.5 PG (26-34); Mean Corpuscular Volume 88.4 fL (80-100); Monocytes Absolute Auto 1300 /uL (0-900); Monocytes Percent Auto 16.9 % (3-14); Neutrophils Absolute Auto 5500 /uL (1500-7000); Neutrophils Percent Auto 70.3 % (50-75); Platelet Count 234 X10^3/uL (150-400); Red Blood Cell Count 4.42 X10^6/uL (4.0-5.2); Red Cell Distribution Width 13.4 % (11.6-14.8); White Blood Cell Count 7.8 X10^3/uL (4.5-11.0)
[2023-07-16 21:25] LABS: Alanine Aminotransferase 22 IU/L (<35); Albumin Globulin Ratio 1.3 (1.0-2.8); Alkaline Phosphatase 67 U/L (38-126); Aspartate Aminotransferase 29 IU/L (14-36); Bilirubin Total 0.5 mg/dL (0.2-1.3); Blood Urea Nitrogen 12 mg/dL (7-17); Calcium 9.5 mg/dL (8.4-10.2); Carbon Dioxide 25 mmol/L (22-32); Chloride 101 mmol/L (98-107); Cholesterol 171 mg/dL (140-199); Estimated Glomerular Filt Rate > 60 mL/min (>60); Glucose 106 mg/dL (70-100); HDL Cholesterol 64 mg/dL (40-60); HEMOLYSIS < 15 (0-50); LDL Cholesterol Calculated 87 mg/dL (<100); Potassium 4.4 mmol/L (3.4-5.1); Sodium 135 mmol/L (137-145); Triglycerides 99 mg/dL (35-150)
[2023-07-16 21:59] LABS: TSH w/ Reflex to FT4 1.03 uIU/mL (0.47-4.68)
== END ==
PROVIDERS: PCP Physician Assistant Medical; Visit Provider Physician Assistant Medical
DX: K74.3 Primary biliary cirrhosis (principal); K76.9 Liver disease, unspecified; J45.901 Unspecified asthma with (acute) exacerbation; E66.9 Obesity, unspecified
CPT/HCPCS: 80053; 80061; 84443; 85025

== ENCOUNTER → 2023-10-07 10:13 | Outpatient (CLI) | payer OTHER, MEDICAID, SELFPAY ==
[2020-08-22 17:29] VITALS: BMI 35.7
--- NOTE | 2023-10-07 10:15 | DI.MG.S_ITS ---
BILATERAL DIGITAL DIAGNOSTIC MAMMOGRAM 3D/2D: 10/07/2023 CLINICAL: Baseline exam. Left breast lump. No prior exams were available for comparison. There are scattered areas of fibroglandular density in both breasts (category b / 25%-50% glandular tissue). No significant masses, calcifications, or other findings are seen in either breast. IMPRESSION: INCOMPLETE: NEEDS ADDITIONAL IMAGING EVALUATION There are no abnormalities seen in the left breast to correspond with the areas of clinical concern described as palpable nodularities indicated by triangular markers in the inner aspect, however, ultrasound is recommended for further evaluation and is scheduled to immediately follow this examination. Based on Tyrer-Cuzick model (a risk assessment model), the patient's lifetime risk is 20.8% and her 10 year risk is 1.6%. If a patient has an elevated risk, a more comprehensive evaluation should be considered and/or a referral to a genetic counselor. The [employer], [employer], and NCCN Guidelines advise the consideration of Breast MRI as an adjunct to screening mammography in patients whose Lifetime risk to develop breast cancer is 20% or higher. This exam was interpreted at Station ID: [id number]. NOTE: For mammograms, a report in lay terms will be sent to the patient. Approximately 15% of breast malignancies will not be visualized mammographically. In the management of a palpable breast mass, a negative mammogram must not discourage biopsy of a clinically suspicious lesion. Electronically Signed By: Martell Kemp M.D. aty/:10/07/2023 11:01:26 ACR BI-RADS Category 0: Incomplete [id number]
--- NOTE | 2023-10-07 10:15 | DI.US.S_ITS ---
ULTRASOUND OF LEFT BREAST: 10/07/2023 CLINICAL: Palpable left breast lumps. Comparison is made to exam dated: 10/07/2023 mammogram - [facility]. Color flow and real-time ultrasound of the left breast were performed. Emanuel scale images of the real-time examination were reviewed. No significant abnormalities were seen sonographically in the left breast. IMPRESSION: NEGATIVE There is no sonographic evidence of malignancy. There are no abnormalities seen in the left breast to correspond with the patient directed areas of palpable nodularities, however, recommend clinical follow up for persistent or worsening symptoms, or development of any clinically suspicious findings. Recommend initiating routine screening mammograms at age 40. Additionally, patient has an elevated lifetime risk for breast cancer of greater than 20%. Recommend consideration for screening breast MRI as an adjunct to screening mammography which can be started prior to screening mammography. Findings and recommendations were conveyed to the patient during today's evaluation. This exam was interpreted at Station ID: [id number]. Electronically Signed By: Martell Kemp M.D. at/:10/07/2023 11:27:43 letter sent: Clinical Evaluation Ultrasound BI-RADS: 1 Negative
== END ==
LOC: MAMMO 10:14
PROVIDERS: PCP Physician Assistant Medical; Referring Provider Physician Assistant Medical; Visit Provider Physician Assistant Medical
DX: N63.22 Unspecified lump in the left breast, upper inner quadrant (principal); R92.2 Inconclusive mammogram; R92.323 Mammographic fibroglandular density, bilateral breasts
CPT/HCPCS: 76642; 77066; G0279

== ENCOUNTER → 2023-12-07 12:13 | Outpatient (CLI) | payer OTHER, MEDICAID, SELFPAY ==
[2020-08-22 17:29] VITALS: BMI 35.7
--- NOTE | 2023-12-07 13:07 | DI.MRI.S_ITS ---
PROCEDURE: MR ABDOMEN WO/W CON INDICATIONS: Primary biliary cirrhosis. Mid abdominal pain. TECHNIQUE: Coronal HASTE, axial 2D FLASH in- and [id number]; axial breath-hold T2 FSE. Dynamic axial VIBE during the administration of contrast; post-contrast coronal VIBE or 2D FLASH with fat saturation from the hepatic dome to the iliac crests. Optional diffusion weighted imaging and ADC may be performed. COMPARISON: [facility], MR, MR ABDOMEN WITHOUT CONTRAST, 01/11/2021, 6:59. FINDINGS: Image quality: Diagnostic. Lung bases: Unremarkable. Liver: No solid mass. Gallbladder: Absent. Biliary ducts: No biliary dilation. Common bile duct measures 4 mm. Pancreas: No ductal dilation. Pancreatic divisum. Spleen: Size is within normal limits. Adrenal Glands: No adrenal nodules. Kidneys and Ureters: No hydronephrosis. No solid mass. No complex renal cystic lesion which requires follow up. Stomach and Bowel: Normal colonic caliber, without significant wall thickening. Peritoneum: No abnormal intraperitoneal fluid. No free air. Ventral Wall: No hernia. Abdominal Nodes: No retroperitoneal or mesenteric adenopathy by size criteria. Vessels: Aorta and inferior vena cava are normal in size. Bones: No aggressive osseous abnormality. IMPRESSION: No biliary pathology. No intrahepatic or extrahepatic biliary dilation. Pancreatic divisum. Dictated by: Arnav Wood M.D. on 12/07/2023 at 14:14 Approved by: Arnav Wood M.D. on 12/07/2023 at 14:16
== END ==
LOC: MRI 12:13
PROVIDERS: PCP Physician Assistant Medical; Referring Provider Internal Medicine Gastroenterology; Visit Provider Internal Medicine Gastroenterology
DX: S36.13XD Injury of bile duct, subsequent encounter (principal); K74.3 Primary biliary cirrhosis; L29.9 Pruritus, unspecified; Z90.49 Acquired absence of other specified parts of digestive tract; R10.11 Right upper quadrant pain
CPT/HCPCS: 74183; A9579

== ENCOUNTER → 2024-05-10 11:22 | Outpatient (CLI) | payer OTHER, MEDICAID, SELFPAY ==
[2020-08-22 17:29] VITALS: BMI 35.7
[2024-05-10 19:03] LABS: Add Manual Diff / Slide Review NO; Basophils Absolute Auto 0 /uL (0-100); Basophils Percent Auto 0.7 % (0-2); Eosinophils Absolute Auto 300 /uL (0-450); Eosinophils Percent Auto 4.6 % (2-4); Hematocrit 39.7 % (36-46); Hemoglobin 13.4 g/dL (12.0-16.0); Lymphocytes Absolute Auto 1800 /uL (1100-4500); Lymphocytes Percent Auto 23.6 % (25-40); Mean Corpuscular HGB Conc 33.7 % (30-36); Mean Corpuscular Hemoglobin 29.7 PG (26-34); Mean Corpuscular Volume 88.4 fL (80-100); Monocytes Absolute Auto 800 /uL (0-900); Monocytes Percent Auto 11.2 % (3-14); Neutrophils Absolute Auto 4500 /uL (1500-7000); Neutrophils Percent Auto 59.9 % (50-75); Platelet Count 237 X10^3/uL (150-400); Red Blood Cell Count 4.49 X10^6/uL (4.0-5.2); Red Cell Distribution Width 13.6 % (11.6-14.8); White Blood Cell Count 7.5 X10^3/uL (4.5-11.0)
[2024-05-10 20:22] LABS: Alanine Aminotransferase 22 IU/L (<35); Albumin 4.1 g/dL (3.5-5.0); Albumin Globulin Ratio 1.3 (1.0-2.8); Alkaline Phosphatase 72 U/L (38-126); Amylase 51 U/L (30-110); Aspartate Aminotransferase 28 IU/L (14-36); BUN Creatinine Ratio 21.1 (6-22); Bilirubin Total 0.3 mg/dL (0.2-1.3); Blood Urea Nitrogen 15 mg/dL (7-17); Calcium 9.7 mg/dL (8.4-10.2); Carbon Dioxide 25 mmol/L (22-32); Chloride 102 mmol/L (98-107); Estimated Glomerular Filt Rate > 60 mL/min (>60); Globulin 3.2 g/dL (1.7-4.1); Glucose 94 mg/dL (70-100); HEMOLYSIS < 15 (0-50); Lipase 41 U/L (23-300); Sodium 131 mmol/L (137-145); Total Protein 7.3 g/dL (6.3-8.2); Uric Acid 5.4 mg/dL (2.5-6.2)
[2024-05-10 20:43] LABS: Hemoglobin A1C% w Est Avg Glu 5.4 % (4.0-6.0)
[2024-05-10 21:00] LABS: TSH w/ Reflex to FT4 1.59 uIU/mL (0.47-4.68)
== END ==
PROVIDERS: PCP Physician Assistant Medical; Visit Provider Physician Assistant Medical
DX: M25.562 Pain in left knee (principal); K74.3 Primary biliary cirrhosis; E66.9 Obesity, unspecified; K76.9 Liver disease, unspecified; K43.2 Incisional hernia without obstruction or gangrene; I10 Essential (primary) hypertension; R73.9 Hyperglycemia, unspecified; F90.9 Attention-deficit hyperactivity disorder, unspecified type; M76.899 Other specified enthesopathies of unspecified lower limb, excluding foot
CPT/HCPCS: 80053; 82150; 83036; 83690; 84443; 84550; 85025

== ENCOUNTER 2024-06-05 07:31 | Emergency (ER) | payer OTHER, MEDICAID, SELFPAY ==
[2020-08-22 17:29] VITALS: BMI 35.7
[2024-06-05 07:37] VITALS: BP 132/87; PULSE 81; RESP 18; TEMP 36.4; O2SAT 100; BMI 33.4
--- NOTE | 2024-06-05 08:31 | DI.RAD.S_ITS ---
PROCEDURE: XR SHOULDER RT MIN 2V INDICATIONS: fall shoulder pain TECHNIQUE: 3 views of the shoulder were acquired. COMPARISON: [facility] ([facility]), CR, XR CHEST 2V, 02/04/2023, 15:16. FINDINGS: Bones: No fractures or dislocations. No suspicious bony lesions. Visualized ribs appear intact. Soft tissues: No suspicious soft tissue calcifications. IMPRESSION: No acute plain film abnormality is seen. If it would be helpful for clinical management decision making, please consider a dedicated, scheduled shoulder MRI for further evaluation (assuming that there is no contraindication). Dictated by: Kevin Ortiz M.D. on 06/05/2024 at 8:09 Approved by: Kevin Ortiz M.D. on 06/05/2024 at 8:10
[2024-06-05] MEDS: KETOROLAC 30 MG/ML VIAL IM (08:37)
--- NOTE | 2024-06-05 09:06 | ED_ITS ---
HPI - Fall General Chief Complaint: Fall Stated Complaint: Fell down her stairs at home was seen at [facility] Time Seen by Provider: 06/05/24 09:06 Source: patient Mode of arrival: Ambulatory History of Present Illness HPI Narrative: Patient 33-year-old female presents today with right shoulder pain. [place] hit her head is complaining of right shoulder pain. [place] [facility] in [place]. They apparently let her sleep she against medical advice she states that no one went in to see her and nobody did anything for her. I called and spoke with the ED physician who states that she had blood work done she had a white count of 15 she has an alcohol level of 0.173. She had a CT head which was negative CT cervical spine which was negative and a CT chest abdomen pelvis which did not show any acute process. She also had a x-ray of her right humerus and right forearm both which were negative Patient denies any headache numbness tingling or weakness. Related Data Home Medications Medication Instructions Recorded Confirmed ursodiol 500 mg tablet 500 mg PO DAILY 02/04/23 05/10/24 albuterol sulfate 90 mcg/actuation 2 puff inhalation Q4-6H PRN 05/13/23 05/10/24 aerosol inhaler Previous Rx's Medication Instructions Recorded prednisone 20 mg tablet 40 mg (2 x 20 mg) PO DAILY #10 tabs 09/18/23 dicyclomine 10 mg capsule 10 mg PO QID PRN abdominal pain 01/20/24 #90 caps dextroamphetamine-amphetamine 10 15 mg (1.5 x 10 mg) PO BID #84 tabs 05/10/24 mg tablet (Adderall) losartan 25 mg tablet 50 mg (2 x 25 mg) PO DAILY #180 05/10/24 tabs Allergies Allergy/AdvReac Type Severity Reaction Status Date / Time nickel Allergy Severe Anaphylaxis Verified 06/05/24 07:43 Sulfa (Sulfonamide Allergy Rash Verified 06/05/24 07:43 Antibiotics) Patient History Medical History Wears contact lenses Decreased hearing Liver disease (~2019) Cirrhosis Ruptured ovarian cyst Surgical History Anesthesia History of liver biopsy (~2020) History of cholecystectomy (~2020) Family History Father Hypertension Heart disease Brother Gallstones Social History marital status: unknown household members: significant other occupational status: unemployed Smoking Status: Current some day smoker alcohol intake: current substance use type: does not use Smoking Status: Current some day smoker tobacco type: cigarettes alcohol intake frequency: a few times a week Substance Use Type: other Exam Initial Vital Signs Initial Vital Signs: Vital Signs Temperature 97.6 F 06/05/24 07:37 Pulse Rate 81 06/05/24 07:37 Respiratory Rate 18 06/05/24 07:37 Blood Pressure 132/87 06/05/24 07:37 Pulse Oximetry 100 06/05/24 07:37 Oxygen Delivery Method Room Air 06/05/24 07:37 GENERAL: Alert well-appearing and in [no acute] distress. HEENT: Head atraumatic,EOMI, pupils reactive, face symmetric, [moist] mucous membranes CARDIOVASCULAR: Regular rate and rhythm without murmurs, rubs or gallops. RESPIRATORY: Breath sounds equal bilaterally, no wheezes rales or rhonchi. ABDOMEN: Soft, nontender. Normoactive bowel sounds all 4 quadrants. No guarding or rebound. EXTREMITIES: Normal range of motion, no clubbing or edema. Neurovascularly intact Right upper extremity no significant step-off since patient in deltoid intact radial pulse intact NEUROLOGICAL: Alert and oriented x4.Normal gait and speech. SKIN: Warm, dry, no laceration, no petechiae, no rashes or lesions. Course Orders Ordered: Discontinued Medications Ketorolac Tromethamine (Ketorolac 30 Mg/Ml Vial) 30 mg IM NOW ONE Stop: 06/05/24 08:32 Last Admin: 06/05/24 08:37 Dose: 30 mg Documented By: COLEMAN Vital Signs Vital signs: Vital Signs - 8 hr 06/05/24 07:37 06/05/24 09:17 Temperature 97.6 F Pulse Rate 81 75 Respiratory Rate 18 18 Blood Pressure 132/87 130/82 Pulse Oximetry 100 98 Oxygen Delivery Method Room Air MDM - Fall Imaging Data Extremity x-ray #1: Radiologist's Impression: PROCEDURE: XR SHOULDER RT MIN 2V INDICATIONS: fall shoulder pain TECHNIQUE: 3 views of the shoulder were acquired. COMPARISON: [facility] ([facility]), CR, XR CHEST 2V, 02/04/2023, 15:16. FINDINGS: Bones: No fractures or dislocations. No suspicious bony lesions. Visualized ribs appear intact. Soft tissues: No suspicious soft tissue calcifications. IMPRESSION: No acute plain film abnormality is seen. If it would be helpful for clinical management decision making, please consider a dedicated, scheduled shoulder MRI for further evaluation (assuming that there is no contraindication). Dictated by: Kevin Ortiz M.D. on 06/05/2024 at 8:09 MDM Narrative Medical decision making narrative: Patient 33-year-old female presents today with right shoulder pain. She fell last night had full workup at [facility]. I called and spoke with ED provider to get records they were able to read me the results over the phone. Patient is a awake alert oriented. Still complaining of some right shoulder pain. X- ray was done here again there is no fracture. Suspect contusion or sprain. Supportive care only. Patient is anxious and ready to go back over to the [facility]. Discharge Plan Departure Patient Disposition: Home Clinical Impression: Acute pain of right shoulder Instructions: How to Prevent Falls Activity Restrictions/Additional Instructions: *You have been diagnosed with right shoulder sprain *What to do: At this time your CT scans in full workup of your head neck chest abdomen and pelvis at [facility] were negative. You had blood work there as well. Today your x-ray here is negative they x-rayed you there as well they were also negative Expect to be sore I encourage light activity Try ice and heat *Continue to take medications as directed Tylenol Motrin as needed for pain *Follow up with your primary care provider in 2-3 days or call [phone] *Return to ER if you should have any new, worsening or concerning symptoms Prescriptions: No Action albuterol sulfate 90 mcg/actuation HFA aerosol inhaler 2 puff inhalation Q4-6H PRN dicyclomine 10 mg capsule 10 mg PO QID PRN (Reason: abdominal pain) Qty: 90 2RF Rx Instructions: can take 1-2 for abdominal pain dextroamphetamine-amphetamine [Adderall] 10 mg tablet 15 mg PO BID Qty: 84 0RF losartan 25 mg tablet 50 mg PO DAILY Qty: 180 3RF ursodiol 500 mg tablet 500 mg PO DAILY prednisone 20 mg tablet 40 mg PO DAILY Qty: 10 0RF Referrals: Merari Flores PA-C [Primary Care Provider] - Stand Alone Forms: Patient Portal/API/Survey
[2024-06-05 09:17] VITALS: BP 130/82; PULSE 75; RESP 18; O2SAT 98
== END 2024-06-05 09:55 | disposition home or self-care (01) ==
PROVIDERS: Emergency Provider Emergency Medicine; PCP Physician Assistant Medical
DX: M25.511 Pain in right shoulder (principal); S09.90XA Unspecified injury of head, initial encounter; W10.9XXA Fall (on) (from) unspecified stairs and steps, initial encounter
CPT/HCPCS: 73030; 96372; 99283; J1885

== ENCOUNTER → 2024-10-27 08:58 | Outpatient (CLI) | payer OTHER, MEDICAID, SELFPAY ==
[2020-08-22 17:29] VITALS: BMI 35.7
[2024-10-27 19:40] LABS: Hemoglobin A1C% w Est Avg Glu 5.1 % (4.0-6.0)
[2024-10-27 19:43] LABS: Alanine Aminotransferase 23 IU/L (<35); Albumin 4.4 g/dL (3.5-5.0); Albumin Globulin Ratio 1.4 (1.0-2.8); Alkaline Phosphatase 65 U/L (38-126); Aspartate Aminotransferase 32 IU/L (14-36); BUN Creatinine Ratio 16.4 (6-22); Bilirubin Total 0.5 mg/dL (0.2-1.3); Blood Urea Nitrogen 12 mg/dL (7-17); Calcium 9.7 mg/dL (8.4-10.2); Carbon Dioxide 23 mmol/L (22-32); Chloride 101 mmol/L (98-107); Cholesterol 208 mg/dL (140-199); Estimated Glomerular Filt Rate > 60 mL/min (>60); Globulin 3.2 g/dL (1.7-4.1); Glucose 102 mg/dL (70-100); HDL Cholesterol 76 mg/dL (40-60); HEMOLYSIS < 15 (0-50); LDL Cholesterol Calculated 98 mg/dL (<100); Potassium 4.3 mmol/L (3.4-5.1); Sodium 135 mmol/L (137-145); Total Protein 7.6 g/dL (6.3-8.2); Triglycerides 169 mg/dL (35-150)
[2024-10-27 20:08] LABS: TSH w/ Reflex to FT4 1.08 uIU/mL (0.47-4.68)
== END ==
PROVIDERS: PCP Family Medicine; Visit Provider Physician Assistant Medical
DX: R73.9 Hyperglycemia, unspecified (principal); F90.9 Attention-deficit hyperactivity disorder, unspecified type; I10 Essential (primary) hypertension; F98.8 Other specified behavioral and emotional disorders with onset usually occurring in childhood and adolescence
CPT/HCPCS: 80053; 80061; 83036; 84443

== ENCOUNTER → 2025-01-24 08:56 | Outpatient (CLI) | payer OTHER, SELFPAY ==
[2020-08-22 17:29] VITALS: BMI 35.7
[2025-01-24 19:27] LABS: Hemoglobin A1C% w Est Avg Glu 5.3 % (4.0-6.0)
[2025-01-24 19:29] LABS: Alanine Aminotransferase 23 IU/L (<35); Albumin 4.3 g/dL (3.5-5.0); Albumin Globulin Ratio 1.4 (1.0-2.8); Alkaline Phosphatase 64 U/L (38-126); Aspartate Aminotransferase 35 IU/L (14-36); BUN Creatinine Ratio 16.4 (6-22); Bilirubin Total 0.4 mg/dL (0.2-1.3); Blood Urea Nitrogen 12 mg/dL (7-17); Calcium 9.7 mg/dL (8.4-10.2); Carbon Dioxide 25 mmol/L (22-32); Chloride 104 mmol/L (98-107); Cholesterol 185 mg/dL (140-199); Estimated Glomerular Filt Rate > 60 mL/min (>60); Glucose 98 mg/dL (70-99); HDL Cholesterol 85 mg/dL (40-60); HEMOLYSIS 17 (0-50); LDL Cholesterol Calculated 78 mg/dL (<100); Potassium 4.4 mmol/L (3.4-5.1); Sodium 136 mmol/L (137-145); Total Protein 7.3 g/dL (6.3-8.2); Triglycerides 112 mg/dL (35-150)
[2025-01-24 20:00] LABS: TSH w/ Reflex to FT4 1.75 uIU/mL (0.47-4.68)
== END ==
PROVIDERS: PCP Physician Assistant Medical; Visit Provider Physician Assistant Medical
DX: R73.9 Hyperglycemia, unspecified (principal); F90.9 Attention-deficit hyperactivity disorder, unspecified type; I10 Essential (primary) hypertension; K74.3 Primary biliary cirrhosis; K76.9 Liver disease, unspecified
CPT/HCPCS: 80053; 80061; 83036; 84443

== ENCOUNTER 2025-02-06 14:28 | Emergency (ER) | payer OTHER, SELFPAY ==
[2020-08-22 17:29] VITALS: BMI 35.7
[2025-02-06] VITALS (8 sets, daily range): BP systolic 131–159; BP diastolic 85–105; PULSE 71–85; RESP 14–23; TEMP 36.8; O2SAT 91–98; BMI 31.1
--- NOTE | 2025-02-06 14:55 | EKG_ITS ---
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
--- NOTE | 2025-02-06 14:55 | PC.NURSE ---
during triage patient mentions feeling off again and maybe having pressure in her chest.
[2025-02-06 15:19] LABS: Add Manual Diff / Slide Review NO; Hematocrit 39.7 % (36-46); Hemoglobin 13.7 g/dL (12.0-16.0); Lymphocytes Absolute Auto 2100 /uL (1100-4500); Mean Corpuscular HGB Conc 34.6 % (30-36); Mean Corpuscular Hemoglobin 29.8 PG (26-34); Mean Corpuscular Volume 86.3 fL (80-100); Platelet Count 259 X10^3/uL (150-400)
--- NOTE | 2025-02-06 15:20 | PC.NURSE ---
Pt states sharp LLQ pain, pt states feels like it's in my ovary, like the last time I had a cyst. 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 Pt also states that at home BP was 160/100, pt states took home BP meds and BP was still high. Pt endorses nausea and lightheadedness with standing and ambulation.
[2025-02-06 15:27] LABS: Alanine Aminotransferase 27 IU/L (<35); Albumin 4.6 g/dL (3.5-5.0); Albumin Globulin Ratio 1.4 (1.0-2.8); Alkaline Phosphatase 69 U/L (38-126); Blood Urea Nitrogen 10 mg/dL (7-17); Calcium 9.2 mg/dL (8.4-10.2); Carbon Dioxide 25 mmol/L (22-32); Chloride 103 mmol/L (98-107); Estimated Glomerular Filt Rate > 60 mL/min (>60); Globulin 3.4 g/dL (1.7-4.1); Glucose 91 mg/dL (70-99); HEMOLYSIS < 15 (0-50); Lipase 24 U/L (23-300); Potassium 3.7 mmol/L (3.4-5.1); Sodium 135 mmol/L (137-145); Total Protein 8.0 g/dL (6.3-8.2)
--- NOTE | 2025-02-06 15:30 | ED.ABDPAIN ---
HPI - Abdominal Pain General Chief Complaint: Urogenital-Female Stated Complaint: Possible ruptured Left Cyst on Ovary Time Seen by Provider: 02/06/25 15:13 Source: patient Mode of arrival: Ambulatory History of Present Illness HPI narrative: 34-year-old female history of cholecystectomy, ADHD, biliary colic, chronic opiate use, hypertension, decreased hearing, primary biliary cholangitis, presents with severe abdominal pain that started yesterday seen by ENT that she needs to be flown off in a evaluated immediately but she refused and waited this morning to come to the clinic and was seen at the clinic advised again to come to the ER to be evaluated. Had multiple episodes of nonbilious nonbloody nausea vomiting today that localized left lower quadrant as well as the right lower quadrant. Her last menstrual period is day 2 today but also reports having more heavy and more frequent periods the last few months but has yet to see her OBGYN. She denies fever, chills, cough, runny nose, sore throat, urinary complaints, vaginal discharge, but she also mentions she has been having intermittent diarrhea for the past week. Patient states she has had ovarian cyst rupture, before but this feels different than previously. Other than what is stated 14 point review of system is negative Related Data Home Medications ?Medication ?Instructions ?Recorded ?Confirmed ursodiol 500 mg tablet 500 mg PO DAILY 02/04/23 02/06/25 Previous Rx's ?Medication ?Instructions ?Recorded dicyclomine 10 mg capsule 10 mg PO QID PRN abdominal pain 01/20/24 #90 caps losartan 25 mg tablet 50 mg (2 x 25 mg) PO DAILY #180 08/04/24 tabs albuterol sulfate 90 mcg/actuation 2 puff inhalation Q4-6H PRN 08/08/24 aerosol inhaler shortness of breath or wheezing #8.5 grams dextroamphetamine-amphetamine 10 15 mg (1.5 x 10 mg) PO BID add #84 01/25/ mg tablet (Adderall) tabs Allergies Allergy/AdvReac Type Severity Reaction Status Date / Time nickel Allergy Severe Anaphylaxis Verified 02/06/25 14:37 Sulfa (Sulfonamide Allergy Rash Verified 02/06/25 14:37 Antibiotics) Review of Systems Review of Systems ROS Unobtainable: All systems reviewed & are unremarkable except as noted in HPI and below Patient History Medical History Wears contact lenses Decreased hearing Liver disease (~2019) Cirrhosis Ruptured ovarian cyst Surgical History Anesthesia History of liver biopsy (~2020) History of cholecystectomy (~2020) Family History Father Hypertension Heart disease Brother Gallstones Social History marital status: unknown household members: significant other occupational status: unemployed Smoking Status: Current every day smoker alcohol intake: current substance use type: does not use Smoking Status: Current every day smoker tobacco type: cigarettes alcohol intake frequency: a few times a week Exam Narrative Exam Narrative: GENERAL: [34] year old patient appears stated age. Well-developed patient, in mild distress. HEAD: Atraumatic. Normocephalic. EYES: Pupils equal round and reactive. Extraocular motions intact. No scleral icterus. No injection or drainage. ENT: Nose without bleeding, purulent drainage. Throat without erythema, tonsillar hypertrophy or exudate. Airway patent. NECK: Trachea midline. Non tender CARDIOVASCULAR: Regular rate and rhythm without murmurs, gallops, or rubs. RESPIRATORY: Clear to auscultation. Breath sounds equal bilaterally. No wheezes, rales, or rhonchi. GASTROINTESTINAL: Abdomen soft, non-tender, nondistended. EXTREMITIES: No edema or joint tenderness. BACK: Nontender without deformity or crepitance. No flank tenderness. NEURO: AOx3. SKIN: No rash or erythema of visible areas Initial Vital Signs Initial Vital Signs: Vital Signs Temperature 98.2 F 02/06/25 14:33 Pulse Rate 81 02/06/25 14:33 Respiratory Rate 18 02/06/25 14:33 Blood Pressure 153/97 H 02/06/25 14:33 Pulse Oximetry 98 02/06/25 14:33 Oxygen Delivery Method Room Air 02/06/25 14:33 Course Orders Ordered: ED Orders 02/06/25 14:55 Complete Blood Count AUTO DIFF Stat Comprehensive Metabolic Panel Stat Lipase Stat Trop I [Troponin I] Stat EKG-12 Lead Stat Ondansetron HCl (Ondansetron 4 Mg/2 Ml Inj) 4 mg IV NOW PRN PRN Reason: Nausea And Vomiting Ondansetron HCl (Ondansetron 4 Mg Odt) 4 mg PO NOW PRN PRN Reason: Nausea And Vomiting Vital Signs Vital signs: Vital Signs - 8 hr 02/06/25 14:33 02/06/25 15:16 02/06/25 15:17 Temperature 98.2 F Pulse Rate 81 78 Respiratory Rate 18 Blood Pressure 153/97 H 159/105 H Pulse Oximetry 98 91 Oxygen Delivery Method Room Air 02/06/25 15:17 Temperature Pulse Rate 78 Respiratory Rate Blood Pressure Pulse Oximetry 98 Oxygen Delivery Method MDM - Abdominal Pain Lab Data 02/06/25 14:55 02/06/25 14:55 Labs: Lab Results 02/06/25 Range/Units 14:55 WBC 7.2 (4.5-11.0) X10^3/uL RBC 4.61 (4.0-5.2) X10^6/uL Hgb 13.7 (12.0-16.0) g/dL Hct 39.7 (36-46) % MCV 86.3 (80-100) fL MCH 29.8 (26-34) PG MCHC 34.6 (30-36) % RDW 12.9 (11.6-14.8) % Plt Count 259 (150-400) X10^3/uL Neut % (Auto) 57.2 (50-75) % Lymph % (Auto) 29.0 (25-40) % Wayne % (Auto) 9.1 (3-14) % Eos % (Auto) 4.1 H (2-4) % Baso % (Auto) 0.6 (0-2) % Neut # (Auto) 4100 (4486-3621) /uL Lymph # (Auto) 2100 (8298-1266) /uL Wayne # (Auto) 700 (0-900) /uL Eos # (Auto) 300 (0-450) /uL Baso # (Auto) 0 (0-100) /uL Sodium 135 L (137-145) mmol/L Potassium 3.7 (3.4-5.1) mmol/L Chloride 103 (98-107) mmol/L Carbon Dioxide 25 (22-32) mmol/L BUN 10 (7-17) mg/dL Creatinine 0.68 (0.52-1.04) mg/dL Estimated GFR > 60 (>60) mL/min BUN/Creatinine Ratio 14.7 (6-22) Glucose 91 (70-99) mg/dL Calcium 9.2 (8.4-10.2) mg/dL Total Bilirubin 0.7 (0.2-1.3) mg/dL AST 46 H (14-36) IU/L ALT 27 (<35) IU/L Alkaline Phosphatase 69 (38-126) U/L Total Protein 8.0 (6.3-8.2) g/dL Albumin 4.6 (3.5-5.0) g/dL Globulin 3.4 (1.7-4.1) g/dL Albumin/Globulin Ratio 1.4 (1.0-2.8) Lipase 24 (23-300) U/L Imaging Data CT scan - abdomen/pelvis: Radiologist's Impression: [address] [address] [address] Scan Report Signed Patient: Violeta Laboy MR#: [id number] : 1990 Acct:[id number] Age/Sex: 34 / F Date of Service: 02/06/25 Loc: ED Accession Number: [id number] Procedure: CT abdomen pelvis w con Ordering Provider: Jeremy Pollock D.O. PROCEDURE: CT ABDOMEN PELVIS W CON INDICATIONS: abd pain n/v TECHNIQUE: After the administration of intravenous contrast, axial sections acquired from the lung bases to the pubic symphysis. Coronal and sagittal reformats were performed. For radiation dose reduction, the following was used: automated exposure control, adjustment of mA and/or kV according to patient size. COMPARISON: [facility], CT, CT ABDOMEN PELVIS W CON, 08/12/2019, 15:45. FINDINGS: Image quality: Diagnostic. Lower Chest: No significant findings. ABDOMEN: Liver: No solid mass. Gallbladder: Absent. Biliary ducts: No biliary dilation. Pancreas: No ductal dilation. Spleen: Size is within normal limits. Adrenal Glands: No adrenal nodules. Kidneys and Ureters: No hydronephrosis. No solid mass. No complex renal cystic lesion which requires follow up. No nephrolithiasis. Stomach and Bowel: Normal colonic caliber, without significant wall thickening. Normal appendix. No diverticular disease. Peritoneum: No abnormal intraperitoneal fluid. No free air. Ventral Wall: No significant ventral hernia. Abdominal Nodes: No retroperitoneal or mesenteric adenopathy by size criteria. Vessels: Aorta and inferior vena cava are normal in size. PELVIS: Pelvic Organs: Symmetric size of the enlarged ovaries. Bladder: No bladder wall thickening, accounting for underdistention. Pelvic Nodes: No enlarged lymph nodes. Miscellaneous: No inguinal hernias are seen. Bones: No aggressive osseous abnormality. Degenerative disc disease, most prominent at L5-S1 with opposing endplate sclerosis and broad-based disc bulge. IMPRESSION: No acute abnormality to explain the patient's left lower quadrant pain. Symmetric ovaries. No nephrolithiasis. No diverticular disease. MDM Narrative Medical decision making narrative: Vital signs, nurse triage note, medication list, previous ER visits, and all imaging studies reviewed. CT abdomen and pelvis showed no acute process symmetric ovaries. No nephrolithiasis and no diverticular disease. Normal white count LFTs troponin lipase and urine all normal. Patient given fluids Toradol and Zofran here. Differential diagnosis includes kidney stone, kidney infection, appendicitis, diverticulitis, pancreatitis, dysfunctional uterine bleed, crohn's disease, ulcerative colitis, PCOS. Will havepatient follow up with PCP and or OBGYN and to make appointment. Patient was offered progesterone but declined and is not on any oral contraceptive. Patient has dicyclomine at home. Clear liquid diet advance as tolerated. Discharge Plan Departure Patient Disposition: Home Clinical Impression: Abdominal mass, LLQ (left lower quadrant), Bleeding, uterine, dysfunctional Instructions: DI for Acute Abdominal Pain Activity Restrictions/Additional Instructions: Return with new or worsening symptoms. Follow up with PCP and or OBGYN in the next 1-2 weeks. Clear liquid diet advance as tolerated. Prescriptions: No Action albuterol sulfate 90 mcg/actuation HFA aerosol inhaler 2 puff inhalation Q4-6H PRN (Reason: shortness of breath or wheezing) Qty: 8.5 1RF dicyclomine 10 mg capsule 10 mg PO QID PRN (Reason: abdominal pain) Qty: 90 2RF Rx Instructions: can take 1-2 for abdominal pain dextroamphetamine-amphetamine [Adderall] 10 mg tablet 15 mg PO BID Qty: 84 0RF ursodiol 500 mg tablet 500 mg PO DAILY losartan 25 mg tablet 50 mg PO DAILY Qty: 180 1RF Referrals: Utter,Merari R, PA-C [Primary Care Provider, Medical] Stand Alone Forms: Patient Portal/API
[2025-02-06 15:38] LABS: Troponin I < 0.012 ng/mL (0.01-0.034)
--- NOTE | 2025-02-06 15:45 | DI.CT.S_ITS ---
PROCEDURE: CT ABDOMEN PELVIS W CON INDICATIONS: abd pain n/v TECHNIQUE: After the administration of intravenous contrast, axial sections acquired from the lung bases to the pubic symphysis. Coronal and sagittal reformats were performed. For radiation dose reduction, the following was used: automated exposure control, adjustment of mA and/or kV according to patient size. COMPARISON: [facility], CT, CT ABDOMEN PELVIS W CON, 08/12/2019, 15:45. FINDINGS: Image quality: Diagnostic. Lower Chest: No significant findings. ABDOMEN: Liver: No solid mass. Gallbladder: Absent. Biliary ducts: No biliary dilation. Pancreas: No ductal dilation. Spleen: Size is within normal limits. Adrenal Glands: No adrenal nodules. Kidneys and Ureters: No hydronephrosis. No solid mass. No complex renal cystic lesion which requires follow up. No nephrolithiasis. Stomach and Bowel: Normal colonic caliber, without significant wall thickening. Normal appendix. No diverticular disease. Peritoneum: No abnormal intraperitoneal fluid. No free air. Ventral Wall: No significant ventral hernia. Abdominal Nodes: No retroperitoneal or mesenteric adenopathy by size criteria. Vessels: Aorta and inferior vena cava are normal in size. PELVIS: Pelvic Organs: Symmetric size of the enlarged ovaries. Bladder: No bladder wall thickening, accounting for underdistention. Pelvic Nodes: No enlarged lymph nodes. Miscellaneous: No inguinal hernias are seen. Bones: No aggressive osseous abnormality. Degenerative disc disease, most prominent at L5-S1 with opposing endplate sclerosis and broad-based disc bulge. IMPRESSION: No acute abnormality to explain the patient's left lower quadrant pain. Symmetric ovaries. No nephrolithiasis. No diverticular disease. Dictated by: Arnav Wood M.D. on 02/06/2025 at 16:51 Approved by: Arnav Wood M.D. on 02/06/2025 at 16:52
[2025-02-06] MEDS: KETOROLAC 30 MG/ML VIAL 15 MG IV (15:56)
[2025-02-06] MEDS: LACTATED RINGERS 1,000 ML 1000 ML IV (16:21)
== END 2025-02-06 17:29 | disposition home or self-care (01) ==
PROVIDERS: Emergency Provider Family Medicine; PCP Physician Assistant Medical
DX: R19.04 Left lower quadrant abdominal swelling, mass and lump (principal); N93.8 Other specified abnormal uterine and vaginal bleeding; R11.2 Nausea with vomiting, unspecified
CPT/HCPCS: 36415; 74177; 80053; 81003; 81025; 83690; 84484; 85025; 93005; 93010; 96361; 96374; 99284; J1885; Q9967